=== PATIENT | female | born 1965 | race Caucasian/White ===

== ENCOUNTER 2019-12-27 17:15 | Emergency (ER) | payer OTHER ==
[~2019-12-27] VITALS: Ht 167.6 cm; Wt 70.3 kg
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
--- NOTE | 2019-12-27 19:12 | NUR ---
Patient discharged to home in stable condition. Written and verbal after care instructions given. Patient verbalizes understanding of instruction.
== END 2019-12-27 19:12 | disposition home or self-care (01) ==
LOC: EDBD 17:18 → ER 17:18
DX: S16.1XXA Strain of muscle, fascia and tendon at neck level, initial encounter (principal); I11.0 Hypertensive heart disease with heart failure; I50.9 Heart failure, unspecified; V49.49XA Driver injured in collision with other motor vehicles in traffic accident, initial encounter; Y93.89 Activity, other specified; Y92.413 State road as the place of occurrence of the external cause; Y99.8 Other external cause status

== ENCOUNTER 2021-12-16 14:08 | Emergency (ER) | payer BC, OTHER ==
[~2021-12-16] VITALS: Ht 154.9 cm; Wt 61.2 kg
--- NOTE | 2021-12-16 14:50 | NUR ---
DR. GRAVES AT BEDSIDE. PER DR. GRAVES PT PENDING FOR ADMISSION. PT IS DECLINING ADMISSION.
[2021-12-16 14:59] LABS: BASOPHILS % (AUTO) 0.6 % (0.0-2.0); EOSINOPHILS % (AUTO) 2.9 % (0.0-6.0); HEMATOCRIT 40 % (33-45); HEMOGLOBIN 12.9 g/dL (11.5-14.8); LYMPHOCYTES # (AUTO) 1.5 K/uL (0.8-4.8); MEAN CORPUSCULAR HGB CONC 33 g/dl (31.0-36.0); MEAN CORPUSCULAR VOLUME 86 fL (82-100); MONOCYTES # (AUTO) 0.5 K/uL (0.1-1.30); MONOCYTES % (AUTO) 10.4 % (2.0-12.0); NEUTROPHILS # (AUTO) 2.2 K/uL (1.8-8.9); NEUTROPHILS % (AUTO) 51.1 % (43.0-81.0); PLATELET COUNT (AUTO) 199 K/uL (150-450); WHITE BLOOD COUNT (AUTO) 4.3 K/uL (4.3-11.0)
--- NOTE | 2021-12-16 14:59 | NUR ---
MOVE SHEET SUBMITTED AND CALLED FOR TELE BED.
[2021-12-16 15:10] LABS: CALCIUM, SERUM 8.9 mg/dL (8.5-10.1); CARBON DIOXIDE 30 mmol/L (21-32); CHLORIDE 100 mmol/L (98-107); GLUCOSE 88 mg/dL (74-106); POTASSIUM 3.4 mmol/L (3.5-5.1); SODIUM SERUM 139 mmol/L (136-145); UREA NITROGEN, BLOOD 18 mg/dL (7-18)
[2021-12-16 15:22] LABS: ALANINE AMINOTRANSFERASE 22 U/L (12-78); ALBUMIN 4.1 g/dL (3.4-5.0); ALKALINE PHOSPHATASE 123 U/L (46-116); ASPARTATE AMINOTRANSFERASE 18 U/L (15-37); BILIRUBIN,DIRECT 0.1 mg/dL (0.0-0.2); BILIRUBIN,TOTAL 0.5 mg/dL (0.2-1.0); TOTAL PROTEIN, SERUM 6.9 g/dL (6.4-8.2)
[2021-12-16] MEDS ORDERED: SPIR25TA6 PO (15:31)
[2021-12-16] MEDS ORDERED: FURO20TA4 PO (15:31)
[2021-12-16] MEDS ORDERED: SACU1TAB4 PO (16:48)
[2021-12-16] MEDS ORDERED: CARV25TA2 PO (16:48)
[2021-12-16] MEDS ORDERED: FUROSEMIDE 40 MG TABLET PO ONE (17:00)
[2021-12-16] MEDS ORDERED: POTASSIUM CHLORIDE 20 MEQ TAB.PRT.SR PO ONE (17:00)
[2021-12-16] MEDS ORDERED: FUROSEMIDE 40 MG/4 ML VIAL IV ONE (17:00)
[2021-12-16] MEDS ORDERED: FUROSEMIDE 40 MG TABLET ONE (17:02)
--- NOTE | 2021-12-16 19:01 | NUR ---
Patient does not wish to proceed with medical care recommended by Ricco Massey. Patient given information related to possible complications, up to and including , which could occur as a result of leaving the hospital at this time. Patient verbalizes understanding of risks involved due to leaving against medical advice. Patient has signed AMA form.
--- NOTE | 2021-12-16 19:01 | NUR ---
PT SIGNED AMA FORM.
[2021-12-16 19:56] VITALS: BP 132/84
== END 2021-12-16 19:01 | disposition left against medical advice (07) ==
LOC: ER 14:14
DX: R77.8 Other specified abnormalities of plasma proteins (principal); I50.9 Heart failure, unspecified; Z79.899 Other long term (current) drug therapy; I51.7 Cardiomegaly; R06.00 Dyspnea, unspecified; Z20.822 Contact with and (suspected) exposure to COVID-19; R03.0 Elevated blood-pressure reading, without diagnosis of hypertension
CPT/HCPCS: 36415; 71045; 80048; 80076; 83880; 84484 ×2; 85025; 87426; 93005; 99285; C9803